=== PATIENT | female | born 1995 | race Caucasian/White ===

== ENCOUNTER 2016-10-05 10:09 | Emergency (ER) | payer BC, MEDICAID ==
[~2016-10-05] VITALS: Ht 152.4 cm; Wt 56.7 kg
[~2016-10-05 10:09] MED LIST: CEFP500T4 PO; FLT05NA16 NSEACH; HYDR1CAP2 PO; IBP600T1 PO; METH4TAB PO
[2016-10-05 10:30] LABS: BASOPHILS # (AUTO) 0.1 10^3/uL (0.0-0.1); BASOPHILS % (AUTO) 1 % (0-10); EOSINOPHILS # (AUTO) 0.1 10^3/uL (0.0-0.3); EOSINOPHILS % (AUTO) 1 % (0-10); LYMPHOCYTES # (AUTO) 1.7 X 10^3 (1.0-4.0); LYMPHOCYTES % (AUTO) 14 % (12-44); MEAN CORPUSCULAR HEMOGLOBIN 29 PG (25-34); MEAN CORPUSCULAR HGB CONC 34 G/DL (32-36); MEAN CORPUSCULAR VOLUME 87 FL (80-99); MEAN PLATELET VOLUME 9.8 FL (7.4-10.4); MONOCYTES # (AUTO) 0.9 X 10^3 (0.0-1.0); MONOCYTES % (AUTO) 8 % (0-12); NEUTROPHILS % (AUTO) 77 % (42-75); PLATELET COUNT 235 10^3/uL (130-400); RED BLOOD COUNT 5.31 10^6/uL (4.35-5.85); WHITE BLOOD COUNT 11.8 10^3/uL (4.3-11.0)
[2016-10-05] MEDS ORDERED: KETOROLAC 30 MG/ML VIAL IVP ONE (10:30)
--- NOTE | 2016-10-05 10:31 | ED Abdominal Pain ---
General Chief Complaint: Abdominal/GI Problems Stated Complaint: R SIDE ABD PAIN Source of Information: Patient Exam Limitations: No Limitations History of Present Illness Time Seen By Provider: 10:28 Initial Comments To ER with right-sided abdominal pain. This been present for 2 days. It initially started as a very mild pain that she ignored. This morning while at work at [employer] pain became much more intense worse with sitting down and radiates to the low back. She denies fevers or chills. She does report nausea but no vomiting. No vaginal discharge. No diarrhea or constipation. She reports that she is sexually active and there is a possibility of . She's never had this pain before. Timing/Duration: 1-2 Days, Getting Worse Severity/Quality: Moderate Location: RLQ Radiation: Back Activities at Onset: None Allergies and Home Medications Allergies Coded Allergies: Penicillins (Unverified Allergy, Intermediate, RASH, 01/26/11) azithromycin (Unverified Allergy, Intermediate, RASH, 01/26/11) Home Medications Cefprozil 500 Mg Tablet, 1 EACH PO BID, #20 Prescribed by: TERRELL EISENBERG on 07/29/1324 Fluticasone Propionate 16 Gm [place], 2 SPRAYS NSEACH DAILY, #1 Prescribed by: TERRELL EISENBERG on 07/29/13 002 Ibuprofen 600 Mg Tablet, 1 EACH PO TID PRN, #20 Prescribed by: ANGIE BALTAZAR on 01/16/13 0936 Methylprednisolone 4 Mg/Dose-Pack Tab.ds.pk, 0 PO UD, #1 Prescribed by: TERRELL EISENBERG on 07/29/1324 Review of Systems Constitutional: see HPI EENTM: No Symptoms Reported Respiratory: No Symptoms Reported Cardiovascular: No Symptoms Reported Gastrointestinal: See HPI, Abdominal Pain, Nausea Genitourinary: No Symptoms Reported Musculoskeletal: no symptoms reported Skin: no symptoms reported Psychiatric/Neurological: No Symptoms Reported Endocrine: No Symptoms Reported Hematologic/Lymphatic: No Symptoms Reported Past Lbhrdnc-Romnwk-Ictccc Hx Patient Social History Alcohol Use: Denies Use Recreational Drug Use: No Smoking Status: Current Someday Smoker Recent Foreign Travel: No Contact w/Someone Who Travel: No Surgeries HX Surgeries: No Respiratory Hx Respiratory Disorders: No Cardiovascular Hx Cardiac Disorders: No Neurological Hx Neurological Disorders: Yes (CONCUSSION 6 MO AGO) Reproductive System Hx Reproductive Disorders: No Genitourinary Hx Genitourinary Disorders: No Gastrointestinal Hx Gastrointestinal Disorders: No Musculoskeletal Hx Musculoskeletal Disorders: No Endocrine Hx Endocrine Disorders: No HEENT HX ENT Disorders: No Cancer Hx Cancer: No Psychosocial Hx Psychiatric Problems: No Integumentary HX Skin/Integumentary Disorder: No Blood Transfusions Hx Blood Disorders: No Family Medical History Significant Family History: No Pertinent Family Hx Physical Exam Vital Signs VS - Last 72 Hours, by Label 10/05/16 10:14 Temp 97.9 Pulse 82 Resp 18 B/P (MAP) 118/70 Pulse Ox 100 O2 Delivery Room Air Capillary Refill : General Appearance: WD/WN, no apparent distress HEENT: PERRL/EOMI, normal ENT inspection Neck: non-tender, full range of motion Respiratory: no respiratory distress, no accessory muscle use Gastrointestinal: normal bowel sounds, soft, No distended, No guarding, tenderness Extremities: normal range of motion, non-tender Neurologic/Psychiatric: alert, normal mood/affect, oriented x 3 Skin: normal color, warm/dry Progress/Results/Core Measures Results/Orders Lab Results Laboratory Tests Test 10/05/16 10:23 10/05/16 10:26 Range/Units Urine Color YELLOW Urine Clarity CLEAR Urine pH 7 5-9 Urine Specific [place] 1.010 L 1.016-1.022 Urine Protein NEGATIVE NEGATIVE Urine Glucose (UA) NEGATIVE NEGATIVE Urine Ketones NEGATIVE NEGATIVE Urine Nitrite NEGATIVE NEGATIVE Urine Bilirubin NEGATIVE NEGATIVE Urine Urobilinogen NORMAL NORMAL MG/DL Urine Leukocyte Esterase 2+ H NEGATIVE Urine RBC (Auto) NEGATIVE NEGATIVE Urine RBC NONE /HPF Urine WBC 5-10 H /HPF Urine Squamous Epithelial Cells 5-10 /HPF Urine Crystals NONE /LPF Urine Bacteria TRACE /HPF Urine Casts NONE /LPF Urine Mucus NEGATIVE /LPF Urine Culture Indicated YES White Blood Count 11.8 H 4.3-11.0 10^3/uL Red Blood Count 5.31 4.35-5.85 10^6/uL Hemoglobin 15.6 11.5-16.0 G/DL Hematocrit 46 35-52 % Mean Corpuscular Volume 87 80-99 FL Mean Corpuscular Hemoglobin 29 25-34 PG Mean Corpuscular Hemoglobin Concent 34 32-36 G/DL Red Cell Distribution Width 13.0 10.0-14.5 % Platelet Count 235 130-400 10^3/uL Mean Platelet Volume 9.8 7.4-10.4 FL Neutrophils (%) (Auto) 77 H 42-75 % Lymphocytes (%) (Auto) 14 12-44 % Monocytes (%) (Auto) 8 0-12 % Eosinophils (%) (Auto) 1 0-10 % Basophils (%) (Auto) 1 0-10 % Neutrophils # (Auto) 9.0 H 1.8-7.8 X 10^3 Lymphocytes # (Auto) 1.7 1.0-4.0 X 10^3 Monocytes # (Auto) 0.9 0.0-1.0 X 10^3 Eosinophils # (Auto) 0.1 0.0-0.3 10^3/uL Basophils # (Auto) 0.1 0.0-0.1 10^3/uL Sodium Level 141 135-145 MMOL/L Potassium Level 3.7 3.6-5.0 MMOL/L Chloride Level 105 98-107 MMOL/L Carbon Dioxide Level 26 21-32 MMOL/L Anion Gap 10 5-14 MMOL/L Blood Urea Nitrogen 11 7-18 MG/DL Creatinine 0.79 0.60-1.30 MG/DL Estimat Glomerular Filtration Rate > 60 BUN/Creatinine Ratio 14 Glucose Level 86 70-105 MG/DL Calcium Level 9.6 8.5-10.1 MG/DL Total Bilirubin 0.6 0.1-1.0 MG/DL Aspartate Amino Transf (AST/SGOT) 17 5-34 U/L Alanine Aminotransferase (ALT/SGPT) 15 0-55 U/L Alkaline Phosphatase 59 40-136 U/L Total Protein 7.8 6.4-8.2 G/DL Albumin 4.8 H 3.2-4.5 G/DL My Orders Orders - CHAN ATKINSON APRN Cbc With Automated Diff (10/05/16 10:18) Comprehensive Metabolic Panel (10/05/16 10:18) Ua Culture If Indicated (10/05/16 10:18) Urine Bedside (10/05/16 10:18) Saline Lock/Iv-Start (10/05/16 10:18) Ct Abd/Pelv W (Appendicitis) (10/05/16 10:28) Ketorolac Injection (Toradol Injection) (10/05/16 10:30) Iohexol Injection (Omnipaque 350 Mg/Ml 1 (10/05/16 10:45) Sodium Chloride Flush (Catheter Flush Sy (10/05/16 10:45) Ns (Ivpb) (Sodium Chloride 0.9% Ivpb Bag (10/05/16 10:45) Urine Culture (10/05/16 10:23) Us Pelvic Non-Ob [id number] (10/05/16 11:19) Medications Given in ED Current Medications Medications Dose Ordered Sig/Joaquín Route Start Time Stop Time Status Last Admin Dose Admin Iohexol 100 ml ONCE ONCE IV 10/05/16 10:45 10/05/16 10:47 DC 10/05/16 10:51 100 ML Ketorolac Tromethamine 30 mg ONCE ONCE IVP 10/05/16 10:30 10/05/16 10:31 DC 10/05/16 10:41 30 MG Sodium Chloride 10 ml NEEDED PRN IV 10/05/16 10:45 10/05/16 10:51 10 ML Sodium Chloride 100 ml ONCE ONCE IV 10/05/16 10:45 10/05/16 10:47 DC 10/05/16 10:51 80 ML Vital Signs/I&O Vital Sign - Last 12Hours 10/05/16 10:14 Temp 97.9 Pulse 82 Resp 18 B/P (MAP) 118/70 Pulse Ox 100 O2 Delivery Room Air Diagnostic Imaging Diagonstic Imaging: Xray Comments NAME: OTTONIEL JUAREZ [facility] REC#: [id number] PT STATUS: REG ER : 1995 PHYSICIAN: CHAN ATKINSON MANAGER OF MAINTENANCE ADMIT DATE: 10/05/16/ER Draft Date of Exam:10/05/16 CT ABD/PELV W (APPENDICITIS) PROCEDURE: CT abdomen and pelvis with contrast, rule out appendicitis. TECHNIQUE: Multiple contiguous axial images were obtained through the abdomen and pelvis after the administration of intravenous contrast. INDICATION: Pelvic pain radiating into the back 3 days history. No priors. FINDINGS: The appendix visualized and unremarkable. There is no hydronephrosis. The liver, gallbladder, bile ducts, spleen, adrenals and pancreas were unremarkable. Aortoiliac and mesenteric vessels patent and nonaneurysmal. There is an IUD device in good position. No acute or suspicious adnexal abnormality. Uterus and urinary bladder are unremarkable. There is mild rectosigmoidal constipation without mitchell impaction or obstruction. Remaining large bowel did not have a pathological fecal load. IMPRESSION: Borderline findings for rectosigmoidal constipation, but no impaction or obstruction. Negative appendix. Unobstructed urinary tracts. No convincing evidence for an acute abnormality. No inflammatory process or obstructive features. Dictated on workstation # [id number] Dict: 10/05/16 1105 Trans: 10/05/16 1117 [id number] Interpreted by: SIVA SMITH Electronically signed by: Departure Communication Progress Notes 1123-pain is completely resolved after 30 mg of IV Toradol. Impression Impression: Primary Impression: Urinary tract infection Additional Impression: Constipation Disposition: HOME, SELF-CARE Condition: Stable Departure-Patient Inst. Decision time for Depature: 11:23 Referrals: NO,LOCAL PHYSICIAN (PCP/Family) Primary Care Physician Patient Instructions: Constipation, Adult (DC), Urinary Tract Infection, Adult (DC) Add. Discharge Instructions: 1. Return to the emergency room for any worsening pain, fevers or other concerns 2. Medication as directed 3. All discharge instructions reviewed with patient and/or family. Voiced understanding. Scripts Polyethylene Glycol 3350 (Miralax) 17 Gm Powd.pack 17 GM PO BID for 3 Days, EACH Prov: CHAN ATKINSON APRN 10/05/16 Sulfamethoxazole/Trimethoprim (Bactrim Ds Tablet) 1 Each Tablet 1 EACH PO BID, #10 TAB Prov: CHAN ATKINSON APRN 10/05/16 CHAN ATKINSON APRN Oct 05, 2016 10:31
[2016-10-05 10:32] LABS: BILIRUBIN,URINE NEGATIVE (NEGATIVE); KETONES,URINE NEGATIVE (NEGATIVE); LEUKOCYTE ESTERASE ,URINE 2+ (NEGATIVE); NITRITE,URINE NEGATIVE (NEGATIVE); PH,URINE 7 (5-9); PROTEIN,URINE NEGATIVE (NEGATIVE); UROBILINOGEN,URINE NORMAL (NORMAL)
[2016-10-05] MEDS ORDERED: IOHEXOL 350 MG/ML 100 ML (OMNIPAQUE 350) VIAL IV ONE (10:45)
[2016-10-05] MEDS ORDERED: NS 100 ML (IVPB) BAG IV ONE (10:45)
[2016-10-05] MEDS ORDERED: CATHETER FLUSH 10 ML SYR IV PRN (10:45)
[2016-10-05 10:53] LABS: ALANINE AMINOTRANSFERASE 15 U/L (0-55); ALBUMIN 4.8 G/DL (3.2-4.5); ANION GAP 10 MMOL/L (5-14); ASPARTATE AMINO TRANSFERASE 17 U/L (5-34); BILIRUBIN,TOTAL 0.6 MG/DL (0.1-1.0); BLOOD UREA NITROGEN 11 MG/DL (7-18); BUN/CREATININE RATIO 14; CALCIUM 9.6 MG/DL (8.5-10.1); CARBON DIOXIDE 26 MMOL/L (21-32); CHLORIDE 105 MMOL/L (98-107); CREATININE SERUM 0.79 MG/DL (0.60-1.30); GFR ESTIMATED > 60; GLUCOSE 86 MG/DL (70-105); POTASSIUM 3.7 MMOL/L (3.6-5.0); SODIUM 141 MMOL/L (135-145); TOTAL PROTEIN 7.8 G/DL (6.4-8.2)
--- NOTE | 2016-10-05 11:18 | Diagnostic Imaging Report ---
PROCEDURE: CT abdomen and pelvis with contrast, rule out appendicitis. TECHNIQUE: Multiple contiguous axial images were obtained through the abdomen and pelvis after the administration of intravenous contrast. INDICATION: Pelvic pain radiating into the back 3 days history. No priors. FINDINGS: The appendix visualized and unremarkable. There is no hydronephrosis. The liver, gallbladder, bile ducts, spleen, adrenals and pancreas were unremarkable. Aortoiliac and mesenteric vessels patent and nonaneurysmal. There is an IUD device in good position. No acute or suspicious adnexal abnormality. Uterus and urinary bladder are unremarkable. There is mild rectosigmoidal constipation without mitchell impaction or obstruction. Remaining large bowel did not have a pathological fecal load. IMPRESSION: Borderline findings for rectosigmoidal constipation, but no impaction or obstruction. Negative appendix. Unobstructed urinary tracts. No convincing evidence for an acute abnormality. No inflammatory process or obstructive features. Dictated by: Dictated on workstation # [id number]
[2016-10-05] MEDS ORDERED: SULF1TAB35 PO (11:25)
[2016-10-05] MEDS ORDERED: POLY17PO6 PO (11:25)
[2016-10-05 11:52] VITALS: BP 117/65
--- NOTE | 2016-10-05 12:07 | Diagnostic Imaging Report ---
Transabdominal and transvaginal pelvic ultrasound. INDICATION: Pelvic pain. The patient has an IUD. FINDINGS: The uterus is 5.2 x 3.6 x 2.8 cm. The IUD is visualized and appears in good position. Slight heterogeneity in the myometrium is seen with no focal mass. The right ovary is 3.3 x 3.0 x 1.9 cm with multiple follicles seen. Arterial waveforms are demonstrated in the right ovary. The left ovary is obscured by bowel gas. IMPRESSION: The uterus and right ovary appear unremarkable. The left ovary is not seen. Dictated by: Dictated on workstation # [id number]
== END 2016-10-05 11:56 | disposition home or self-care (01) ==
LOC: EDUNIT# 10:09 → ER 10:11
DX: N39.0 Urinary tract infection, site not specified (principal); K59.00 Constipation, unspecified; F17.200 Nicotine dependence, unspecified, uncomplicated
CPT/HCPCS: 36415; 74177; 76830; 80053; 81000; 84703; 85025; 87088

== ENCOUNTER 2017-02-02 15:15 | Emergency (ER) | payer BC ==
[~2017-02-02] VITALS: Ht 152.4 cm; Wt 56.7 kg
[~2017-02-02 15:15] MED LIST changes: +POLY17PO6 PO; +SULF1TAB35 PO
--- NOTE | 2017-02-02 15:26 | ED Upper Extremity ---
General Stated Complaint: RIGHT HAND INJ Source: patient Exam Limitations: no limitations History of Present Illness Time seen by provider: 15:25 Initial Comments To ER with pain to the dorsal aspect of the right hand over the third MCP joint after punching a car window this morning. Onset: this morning Severity: moderate Pain/Injury Location: right hand Method of Injury: direct blow Modifying Factors: Worse With Movement Allergies and Home Medications Allergies Coded Allergies: Penicillins (Unverified Allergy, Intermediate, RASH, 01/26/11) azithromycin (Unverified Allergy, Intermediate, RASH, 01/26/11) Home Medications Cefprozil 500 Mg Tablet, 1 EACH PO BID, #20 Prescribed by: TERRELL EISENBERG on 07/29/13 002 Fluticasone Propionate 16 Gm [place], 2 SPRAYS NSEACH DAILY, #1 Prescribed by: TERRELL EISENBERG on 07/29/13 002 Ibuprofen 600 Mg Tablet, 1 EACH PO TID PRN, #20 Prescribed by: ANGIE BALTAZAR on 01/16/13 0936 Methylprednisolone 4 Mg/Dose-Pack Tab.ds.pk, 0 PO UD, #1 Prescribed by: TERRELL EISENBERG on 07/29/1324 Polyethylene Glycol 3350 17 Gm Powd.pack, 17 GM PO BID for 3 Days Prescribed by: CHNA ATKINSON on 10/05/161124 Sulfamethoxazole/Trimethoprim 1 Each Tablet, 1 EACH PO BID, #10 Prescribed by: CHAN ATKINSON on 10/05/165 Constitutional: see HPI EENTM: see HPI Respiratory: no symptoms reported Cardiovascular: no symptoms reported Genitourinary: no symptoms reported Musculoskeletal: see HPI Skin: no symptoms reported Psychiatric/Neurological: No Symptoms Reported Past Bdrvjqg-Fwvcpt-Xmciyp Hx Patient Social History Recent Foreign Travel: No Contact w/Someone Who Travel: No Surgeries History of Surgeries: No Respiratory History of Respiratory Disorde: No Cardiovascular History of Cardiac Disorders: No Neurological History of Neurological Disord: Yes (CONCUSSION 6 MO AGO) Reproductive System Hx Reproductive Disorders: No Gastrointestinal History of Gastrointestinal Di: No Musculoskeletal History of Musculoskeletal Dis: No Endocrine History of Endocrine Disorders: No Cancer History of Cancer: No Psychosocial History of Psychiatric Problem: No Integumentary History of Skin or Integumenta: No Blood Transfusions History of Blood Disorders: No Family Medical History Significant Family History: No Pertinent Family Hx Physical Exam Vital Signs Vital Sign - Last 12Hours 02/02/17 15:20 Temp 98.1 Pulse 70 Resp 18 B/P (MAP) 112/68 Pulse Ox 100 O2 Delivery Room Air Capillary Refill : General Appearance: WD/WN, no apparent distress HEENT: PERRL/EOMI, normal ENT inspection Neck: non-tender, full range of motion Respiratory: no respiratory distress, no accessory muscle use Gastrointestinal: non tender, soft Shoulder: normal inspection, non-tender Wrist: Yes normal inspection, Yes non-tender Hand: normal inspection, non-tender, Right, ecchymosis (over the dorsal aspect of the hand at the middle MCP joint. ), laceration Neurologic/Psychiatric: alert, normal mood/affect, oriented x 3 Skin: normal color, warm/dry Progress/Results/Core Measures Results/Orders My Orders Orders - CHAN ATKINSON APRN Hand, Right, 3 Views (02/02/17 15:24) Vital Signs/I&O Vital Sign - Last 12Hours 02/02/17 15:20 Temp 98.1 Pulse 70 Resp 18 B/P (MAP) 112/68 Pulse Ox 100 O2 Delivery Room Air Departure Impression Impression: Primary Impression: Contusion of hand Disposition: 01 HOME, SELF-CARE Condition: Stable Departure-Patient Inst. Decision time for Depature: 15:48 Referrals: NO,LOCAL PHYSICIAN (PCP/Family) Primary Care Physician Patient Instructions: Contusion (DC) Add. Discharge Instructions: 1. Wear the splint for the next 2-3 days 2. Tylenol Motrin and an ice pack for pain control 3. Work/School Note: Work Release Form Date Seen in the Emergency Department: Feb 02, 2017 Return to Work: Feb 03, 2017 CHAN ATKINSON APRN Feb 02, 2017 15:26
--- NOTE | 2017-02-02 15:54 | Diagnostic Imaging Report ---
INDICATION: Hand injury. FINDINGS: Three views of the right hand show no fracture, dislocation, or other acute abnormalities. IMPRESSION: Negative right hand. Dictated by: Dictated on workstation # [id number]
[2017-02-02 16:10] VITALS: BP 112/68
== END 2017-02-02 16:10 | disposition home or self-care (01) ==
LOC: EDUNIT# 15:15 → ER 15:17
DX: S60.221A Contusion of right hand, initial encounter (principal); W22.09XA Striking against other stationary object, initial encounter
CPT/HCPCS: 73130; 99282

== ENCOUNTER → 2017-09-14 | Outpatient (CLI) | payer BC ==
--- NOTE | 2017-09-14 16:05 | Diagnostic Imaging Report ---
INDICATION: survey. TECHNIQUE: Multiple real-time grayscale images were obtained over the gravid uterus. COMPARISON: None FINDINGS: There is a single live fetus in a cephalic presentation. The placenta is anterior. The amniotic fluid volume is normal. heart rate was recorded 147 beats per minute. Cervical length is 5 cm. kidneys, bladder and stomach are unremarkable. brain is unremarkable. There is a four-chamber heart. There is a three-vessel cord with normal cord insertion. spine is unremarkable. Biometrical measurements are as follows: Biparietal 4.8 cm, age 20 weeks 3 days. Head circumference 17.3 cm, age 16 weeks 3 days. Abdominal circumference 14.4 cm, age 19 weeks 6 days. Femur length 3.2 cm, age 20 weeks 1 days. Sonographic estimate age: 20 weeks 1 days. Sonographic estimated date of delivery: 01/31/18. Estimated Weight: 322 gm (+/- 47 gm). LMP percentile: 21%. heart rate: 147 beats per minute. number: 1 of 1. IMPRESSION: Single live IUP approximately 20 weeks 1 day gestational age. The estimated date of confinement sonographically is 01/31/2018. Dictated by: Dictated on workstation # [id number]
== END ==
LOC: RAD 12:00
PROVIDERS: ATTEND Obstetrics & Gynecology
DX: Z36.89 Encounter for other specified antenatal screening (principal); Z3A.20 20 weeks gestation of pregnancy
CPT/HCPCS: 76805

== ENCOUNTER 2017-10-11 20:21 | Emergency (ER) | payer BC ==
[~2017-10-11] VITALS: Ht 152.4 cm; Wt 63.5 kg
--- OUTSIDE RECORDS SUMMARY | 2017-10-11 20:26 | XMS REPORT ---
Author Author JYOTI GUERRA Organization [facility] Address [address] [place] [address] Care Team Providers Care Banking Supervisor Name Role Phone JYOTI GUERRA Unavailable PROBLEMS Type Condition ICD9-CM Code [id number] Code Onset Dates Condition Status SNOMED Code Problem Dysuria 788.1 Active 71323049 Problem Lumbago 724.2 Active 489580991 Problem Pain in joint, shoulder region 719.41 Active 910185597 Problem GARDASIL (HPV) DX V04.89 Active 944411959 Problem MENINGOCOCCAL DX V03.89 Active 55705039 Problem Posttraumatic stress disorder F43.10 Active 06649516 Problem Cannabis dependence, abuse F12.20 Active 56170371 Problem Urinary tract infection, site not specified 599.0 Active 85861832 Problem Lump or mass in breast 611.72 Active 03069051 Problem Postconcussion syndrome 310.2 Active 77883885 Problem Unspecified otitis media 382.9 Active 89892738 ALLERGIES No Information SOCIAL HISTORY Never Assessed PLAN OF CARE Activity Details Follow Up Next available Reason:PTSD VITAL SIGNS MEDICATIONS No Known Medications RESULTS No Results PROCEDURES Procedure Date Ordered Result Body Site Psychotherapy, patient &/family, 30 minutes, established patient September 27, 2016 IMMUNIZATIONS No Known Immunizations
--- OUTSIDE RECORDS SUMMARY | 2017-10-11 20:26 | XMS REPORT ---
Author Author ADOLFO ROLLINS Organization [facility] Address [address] [place] [address] Care Team Providers Care Executive Casino Host Name Role Phone ADOLFO ROLLINS Unavailable PROBLEMS Type Condition ICD9-CM Code UOR15-NO Code Onset Dates Condition Status SNOMED Code Problem Dysuria 788.1 Active 93712570 Problem Lumbago 724.2 Active 878237028 Problem Pain in joint, shoulder region 719.41 Active 049831598 Problem GARDASIL (HPV) DX V04.89 Active 865320213 Problem MENINGOCOCCAL DX V03.89 Active 12459112 Problem Posttraumatic stress disorder F43.10 Active 98030943 Problem Cannabis dependence, abuse F12.20 Active 10825743 Problem Urinary tract infection, site not specified 599.0 Active 18240615 Problem Lump or mass in breast 611.72 Active 08702260 Problem Postconcussion syndrome 310.2 Active 78807562 Problem Unspecified otitis media 382.9 Active 39617210 ALLERGIES No Information SOCIAL HISTORY Never Assessed PLAN OF CARE Activity Details Follow Up prn; will follow up with recommendations from chief psychologist Reason: VITAL SIGNS MEDICATIONS No Known Medications RESULTS No Results PROCEDURES Procedure Date Ordered Result Body Site Psychotherapy, patient &/family, 30 minutes, established patient September 20, 2016 IMMUNIZATIONS No Known Immunizations
--- OUTSIDE RECORDS SUMMARY | 2017-10-11 20:26 | XMS REPORT ---
Author Author JYOTI GUERRA Organization [facility] Address [address] [place] [address] Care Team Providers Care International Logistics Analyst Name Role Phone JYOTI GUERRA Unavailable PROBLEMS Type Condition ICD9-CM Code [id number] Code Onset Dates Condition Status SNOMED Code Problem Dysuria 788.1 Active 71274390 Problem Lumbago 724.2 Active 386083892 Problem Pain in joint, shoulder region 719.41 Active 757984764 Problem GARDASIL (HPV) DX V04.89 Active 637327140 Problem MENINGOCOCCAL DX V03.89 Active 98430401 Problem Posttraumatic stress disorder F43.10 Active 57618724 Problem Cannabis dependence, abuse F12.20 Active 60750854 Problem Urinary tract infection, site not specified 599.0 Active 00647456 Problem Lump or mass in breast 611.72 Active 99930729 Problem Postconcussion syndrome 310.2 Active 18966048 Problem Unspecified otitis media 382.9 Active 55142641 ALLERGIES No Information SOCIAL HISTORY Never Assessed PLAN OF CARE VITAL SIGNS MEDICATIONS No Known Medications RESULTS No Results PROCEDURES No Known procedures IMMUNIZATIONS No Known Immunizations
--- OUTSIDE RECORDS SUMMARY | 2017-10-11 20:26 | XMS REPORT ---
Author Author ADOLFO ROLLINS Organization [facility] Address [address] [place] [address] Care Team Providers Care Floor Hand Name Role Phone ADOLFO ROLLINS Unavailable PROBLEMS Type Condition ICD9-CM Code [id number] Code Onset Dates Condition Status SNOMED Code Problem Dysuria 788.1 Active 39716046 Problem Lumbago 724.2 Active 162865454 Problem Pain in joint, shoulder region 719.41 Active 945590335 Problem GARDASIL (HPV) DX V04.89 Active 858918918 Problem MENINGOCOCCAL DX V03.89 Active 37985691 Problem Posttraumatic stress disorder F43.10 Active 70595692 Problem Cannabis dependence, abuse F12.20 Active 08415756 Problem Urinary tract infection, site not specified 599.0 Active 43349487 Problem Lump or mass in breast 611.72 Active 43810781 Problem Postconcussion syndrome 310.2 Active 93259807 Problem Unspecified otitis media 382.9 Active 56657979 ALLERGIES No Information SOCIAL HISTORY Never Assessed PLAN OF CARE Activity Details Follow Up 1 Week Reason: VITAL SIGNS MEDICATIONS No Known Medications RESULTS No Results PROCEDURES Procedure Date Ordered Result Body Site Psychotherapy, patient &/family, 30 minutes, established patient September 07, 2016 IMMUNIZATIONS No Known Immunizations
--- OUTSIDE RECORDS SUMMARY | 2017-10-11 20:26 | XMS REPORT ---
Author Author ADOLFO ROLLINS Organization [facility] Address [address] [place] [address] Care Team Providers Care Dental Assistant Medical Assistant Name Role Phone MERONMICHAELADOLFO Unavailable PROBLEMS Type Condition ICD9-CM Code JMW34-SD Code Onset Dates Condition Status SNOMED Code Problem Dysuria 788.1 Active 55838216 Problem Lumbago 724.2 Active 914695632 Problem Pain in joint, shoulder region 719.41 Active 921223636 Problem GARDASIL (HPV) DX V04.89 Active Problem MENINGOCOCCAL DX V03.89 Active Problem Posttraumatic stress disorder F43.10 Active 06897172 Problem Cannabis dependence, abuse F12.20 Active 72468414 Problem Urinary tract infection, site not specified 599.0 Active 61552072 Problem Lump or mass in breast 611.72 Active 72071326 Problem Postconcussion syndrome 310.2 Active 28695945 Problem Unspecified otitis media 382.9 Active 36073640 ALLERGIES No Information SOCIAL HISTORY Never Assessed PLAN OF CARE Activity Details Follow Up 1 Week Reason: VITAL SIGNS MEDICATIONS No Known Medications RESULTS Name Result Date Reference Range URINE DRUG SCREEN (IN HOUSE) 2016-08-31 Lot # [id number] Exp date 03/2018 Control + COCAINE neg AMPH neg MTD neg THC + OPIATE neg BENZO neg PCP neg BAR neg OXY neg MAMP neg TCA n/a BUP neg MDMA neg PROCEDURES Procedure Date Ordered Result Body Site DRUG TEST PRSMV DIR OPT OBS August 31, 2016 Psychotherapy, patient &/family, 30 minutes, new patient August 31, 2016 IMMUNIZATIONS No Known Immunizations
--- NOTE | 2017-10-11 20:53 | ED General ---
General Chief Complaint: Chest Pain Stated Complaint: CHEST PAIN,24 WEEEKS Nursing Triage Note: PT PRESENTS TO ER WITH COMPLAINT OF CHEST PRESSURE AND "HEART RACING". STATES IT WORSENED AFTER EATING. PT IS 24 WEEKS . STATES THE PAIN IS AT THE LOWER PART OF HER STERNUM. Nursing Sepsis Screen: No Definite Risk Source of Information: Patient Exam Limitations: No Limitations History of Present Illness Date Seen by Provider: Oct 11, 2017 Time Seen by Provider: 20:50 Initial Comments The patient is a 22-year-old white female who is 24 weeks . She reported that about 1 hour prior to arrival while putting gas in the car she developed a rather sharp burning pain at the distal sternum and deep. She has been experiencing some heartburn as her has progressed. She ate after the onset and the pain became worse. There was no belching or regurgitation. She has not otherwise been ill Timing/Duration: 1-3 Hours Allergies and Home Medications Allergies Coded Allergies: Penicillins (Unverified Allergy, Intermediate, RASH, 01/26/11) azithromycin (Unverified Allergy, Intermediate, RASH, 01/26/11) Home Medications Cefprozil 500 Mg Tablet, 1 EACH PO BID Prescribed by: TERRELL EISENBERG on 07/29/1324 Fluticasone Propionate 16 Gm Ideal, 2 SPRAYS NSEACH DAILY Prescribed by: TERRELL EISENBERG on 07/29/1324 Ibuprofen 600 Mg Tablet, 1 EACH PO TID PRN Prescribed by: ANGIE BALTAZAR on 01/16/13 0936 Methylprednisolone 4 Mg/Dose-Pack Tab.ds.pk, 0 PO UD Prescribed by: TERRELL EISENBERG on 07/29/1324 Polyethylene Glycol 3350 17 Gm Powd.pack, 17 GM PO BID Prescribed by: CHAN ATKINSON on 10/05/16 112 Sulfamethoxazole/Trimethoprim 1 Each Tablet, 1 EACH PO BID Prescribed by: CHAN ATKINSON on 10/05/16 1125 Patient Home Medication List Home Medication List Reviewed: Yes Review of Systems Constitutional: see HPI EENTM: no symptoms reported Respiratory: no symptoms reported Cardiovascular: chest pain Gastrointestinal: heartburn Genitourinary: no symptoms reported Musculoskeletal: no symptoms reported Skin: no symptoms reported Psychiatric/Neurological: No Symptoms Reported Past Meppjnv-Igakci-Wfejoi Hx Patient Social History Alcohol Use: Denies Use Recreational Drug Use: No Smoking Status: Never a Smoker 2nd Hand Smoke Exposure: No Recent Foreign Travel: No Contact w/Someone Who Travel: No Recent Infectious Disease Expo: No Recent Hopitalizations: No Immunizations Up To Date Tetanus Booster (TDap): Unknown PED Vaccines UTD: Yes Seasonal Allergies Seasonal Allergies: No Past Medical History Surgeries: No Respiratory: No Cardiac: No Neurological: Yes (CONCUSSION 6 MO AGO) Reproductive Disorders: No Gastrointestinal: No Musculoskeletal: No Endocrine: No Cancer: No Psychosocial: No Integumentary: No Blood Disorders: No Family Medical History No Pertinent Family Hx Physical Exam Vital Signs Vital Signs - First Documented 10/11/17 20:28 Pulse 101 Resp 16 B/P (MAP) 138/78 (98) Pulse Ox 97 O2 Delivery Room Air Capillary Refill : Less Than 3 Seconds General Appearance: Mild Distress Eyes: Bilateral Eye Normal Inspection HEENT: Normal ENT Inspection Neck: Full Range of Motion, Normal Inspection, Non Tender, Supple, Carotid Bruit Cardiovascular: Regular Rate, Rhythm, No Edema, No Gallop, No JVD, No Murmur, Normal Peripheral Pulses Gastrointestinal: Normal Bowel Sounds, No Organomegaly, No Pulsatile Mass, Non Tender, Other (palpable dome of the uterus) Back: Normal Inspection Extremity: Normal Inspection Neurologic/Psychiatric: Alert, Oriented x3, No Motor/Sensory Deficits, Normal Mood/Affect Skin: Normal Color Lymphatic: No Adenopathy Progress/Results/Core Measures Suspected Sepsis Recent Fever Within 48 Hours: No Infection Criteria Present: None New/Unexplained Altered Menta: No Sepsis Screen: No Definite Risk SIRS Temperature: Pulse: 101 Respiratory Rate: 16 Blood Pressure 138 /78 Mean: 98 Results/Orders My Orders Orders - DEDRA THAYER MD Antacid Suspension (Mylanta Suspension (10/11/17 21:00) Cbc With Automated Diff (10/11/17 21:35) Comprehensive Metabolic Panel (10/11/17 21:35) Lipase (10/11/17 21:35) Troponin I (10/11/17 21:41) Medications Given in ED Current Medications Medications Dose Ordered Sig/Joaquín Route Start Time Stop Time Status Last Admin Dose Admin Al Hydrox/Mg Hydrox/Simethicone 30 ml ONCE ONCE PO 10/11/17 21:00 10/11/17 21:01 DC 10/11/17 21:07 30 ML Vital Signs/I&O 10/11/17 20:28 Pulse 101 Resp 16 B/P (MAP) 138/78 (98) Pulse Ox 97 O2 Delivery Room Air Capillary Refill : Less Than 3 Seconds Blood Pressure Mean: 98 Departure Communication (Admissions) 4875 the patient had reported the Mylanta was of little or no help. Doppler was employed to get a pedal pulse of 152 which satisfied her concerns Impression Primary Impression: epigastric pain Disposition: HOME, SELF-CARE Condition: Stable/Unchanged Departure-Patient Inst. Decision time for Depature: 22:14 Referrals: NO,LOCAL PHYSICIAN (PCP) Primary Care Physician CARMEN BROWER DO (Family) Primary Care Physician Add. Discharge Instructions: All discharge instructions reviewed with patient and/or family. Voiced understanding. Contact Dr. Brower in the a.m. if discomfort continues DEDRA THAYER MD Oct 11, 2017 20:53
[2017-10-11] MEDS ORDERED: ANTACID SUSP 30 ML UDC (MYLANTA) PO ONE (21:00)
[2017-10-11 22:20] VITALS: BP 138/78
== END 2017-10-11 22:20 | disposition home or self-care (01) ==
LOC: EDUNIT# 20:21 → ER 20:22
DX: O99.89 Other specified diseases and conditions complicating pregnancy, childbirth and the puerperium (principal); R10.13 Epigastric pain; Z87.828 Personal history of other (healed) physical injury and trauma; Z88.0 Allergy status to penicillin; Z88.1 Allergy status to other antibiotic agents; Z3A.24 24 weeks gestation of pregnancy
CPT/HCPCS: 99285

== ENCOUNTER 2018-01-17 14:54 | Outpatient (CLI) | payer BC ==
[~2018-01-17] VITALS: Ht 152.4 cm; Wt 73.5 kg
[2018-01-17] MEDS ORDERED: FLU QUADRIvalent (5+ YOA) 2018-2019 (AFLURIA) 0.5 ML IM ONE (17:45)
--- NOTE | 2018-01-22 09:58 | Physician Query-Final Dx ---
ADAM PANIAGUA 01/22/18 0958: Clinic Account Progress/Dx Physician Query: Please give a diagnosis and the weeks of gestation thank you Date of Service Jan 17, 2018 at 14:54 CARMEN BROWER DO 01/26/18 1728: Clinic Account Progress/Dx DIAGNOSIS: Diagnosis 36 week gestation threatened labor/ contractions ADAM PANIAGUA Jan 22, 2018 09:58 CARMEN BROWER DO Jan 26, 2018 17:28
== END 2018-01-17 17:28 | disposition home or self-care (01) ==
LOC: LDRP 14:54 → WSo 14:54 → LDRP 14:55 → WSo 17:28
PROVIDERS: ATTEND Obstetrics & Gynecology
DX: O47.03 False labor before 37 completed weeks of gestation, third trimester (principal); Z3A.36 36 weeks gestation of pregnancy; Z23 Encounter for immunization
CPT/HCPCS: 99214

== ENCOUNTER 2018-02-01 20:00 | Inpatient (IN) | payer BC ==
[~2018-02-01] VITALS: Ht 152.4 cm; Wt 74.1 kg
[~2018-02-01 20:00] MED LIST changes: +D5 LR IV SOLUTION 1,000 ML IV ONE; +NS (IVPB) 0 ML ONE
[2018-02-01] MEDS ORDERED: VANCOMYCIN INJECTION 1,000 MG in NS (IVPB) 250 ML IV SCH (20:30)
[2018-02-01] MEDS ORDERED: TERBUTALINE INJ 1 MG/ML (BRETHINE) AMP SC PRN (20:30)
[2018-02-01] MEDS ORDERED: MINERAL OIL CONCENTRATE 99.9% 15 ML UDC TOP PRN (20:30)
[2018-02-01] MEDS ORDERED: MISOPROSTOL 100 MCG (CYTOTEC) TAB PO ONE (20:30)
[2018-02-01] MEDS: LACTATED RINGERS 1,000 ML IV SCH (20:40)
[2018-02-01] MEDS ORDERED: NS (IVPB) 250 ML ONE (20:46)
[2018-02-01] MEDS ORDERED: VANCOMYCIN 1000 MG/VIAL ONE (20:52)
[2018-02-01 20:55] LABS: BASOPHILS % (AUTO) 0 % (0-10); EOSINOPHILS # (AUTO) 0.1 10^3/uL (0.0-0.3); EOSINOPHILS % (AUTO) 1 % (0-10); HEMATOCRIT 36 % (35-52); HEMOGLOBIN 12.8 G/DL (11.5-16.0); LYMPHOCYTES # (AUTO) 1.9 X 10^3 (1.0-4.0); LYMPHOCYTES % (AUTO) 21 % (12-44); MEAN CORPUSCULAR HEMOGLOBIN 30 PG (25-34); MEAN CORPUSCULAR HGB CONC 36 G/DL (32-36); MEAN CORPUSCULAR VOLUME 83 FL (80-99); MEAN PLATELET VOLUME 10.5 FL (7.4-10.4); MONOCYTES # (AUTO) 0.8 X 10^3 (0.0-1.0); MONOCYTES % (AUTO) 9 % (0-12); NEUTROPHILS # (AUTO) 6.2 X 10^3 (1.8-7.8); NEUTROPHILS % (AUTO) 69 % (42-75); PLATELET COUNT 227 10^3/uL (130-400); RED BLOOD COUNT 4.34 10^6/uL (4.35-5.85); RED CELL DISTRIBUTION WIDTH 13.8 % (10.0-14.5)
[2018-02-01 21:00] VITALS: BP 125/75
[2018-02-01] MEDS ORDERED: ZOLPIDEM 5 MG (AMBIEN) TAB PO SCH (21:00)
[2018-02-01] MEDS: D5 LR IV SOLUTION 1,000 ML IV SCH (21:07)
[2018-02-01 22:00] VITALS: BP 130/85
[2018-02-01] MEDS ORDERED: diphenhydrAMINE 50 MG/ML INJ (BENADRYL) ONE (22:04)
[2018-02-01] MEDS ORDERED: FAMOTIDINE 20MG/2ML IV (PEPCID) ONE (22:12)
[2018-02-01] MEDS ORDERED: CATHETER FLUSH 10 ML SYR IV PRN (22:45)
[2018-02-01] MEDS ORDERED: diphenhydrAMINE 50 MG/ML INJ (BENADRYL) IM ONE (22:45)
[2018-02-01] MEDS ORDERED: FAMOTIDINE 20MG/2ML IV (PEPCID) IVP ONE (22:45)
[2018-02-01 23:00] VITALS: BP 112/64
[2018-02-01 23:48] LABS: BILIRUBIN,URINE NEGATIVE (NEGATIVE); CLARITY,URINE CLEAR; COLOR,URINE YELLOW; GLUCOSE, URINE (UA) NEGATIVE (NEGATIVE); KETONES,URINE NEGATIVE (NEGATIVE); LEUKOCYTE ESTERASE ,URINE NEGATIVE (NEGATIVE); NITRITE,URINE NEGATIVE (NEGATIVE); PH,URINE 6 (5-9); PROTEIN,URINE NEGATIVE (NEGATIVE); UROBILINOGEN,URINE NORMAL (NORMAL)
[2018-02-01 23:58] LABS: BACTERIA,URINE TRACE /HPF; SQUAMOUS EPITHELIAL CELL,UR 0-2 /HPF; WBC,URINE 0-2 /HPF
[2018-02-02] VITALS (70 sets, daily range): BP systolic 90–194; BP diastolic 54–121
[2018-02-02] MEDS: LACTATED RINGERS 1,000 ML IV SCH (00:32)
[2018-02-02] MEDS: MISOPROSTOL 100 MCG (CYTOTEC) TAB PO SCH ×2 (01:13→05:08)
[2018-02-02] MEDS ORDERED: morphine INJ 10 MG/ML 1ML (SYR OR VIAL) ONE (01:17)
[2018-02-02] MEDS: morphine INJ 4 MG/ML 1 ML (VIAL/SYRINGE) IVP PRN ×3 (01:27→09:14)
[2018-02-02] MEDS: ceFAZolin INJECTION 1,000 MG in NS (IVPB) 50 ML IV SCH ×3 (05:08→21:17)
[2018-02-02] MEDS: D5 LR IV SOLUTION 1,000 ML IV SCH ×2 (05:10→13:00)
[2018-02-02] MEDS ORDERED: FLU QUADRIvalent (5+ YOA) 2018-2019 (AFLURIA) 0.5 ML IM ONE (07:30)
[2018-02-02] MEDS: EPIDURAL (SUFENTA 0.6MCG/ML BUPIVA 0.125%) 100 ML BAG EPI PRN ×2 (09:00→19:18)
[2018-02-02] MEDS ORDERED: ONDANSETRON 4 MG/2 ML (SDV) Z0FRAN IVP ONE (09:45)
[2018-02-02] MEDS ORDERED: fentaNYL INJECTION 100 MCG/2 ML AMP ONE (10:22)
[2018-02-02] MEDS ORDERED: SUFENTA 0.6MCG/ML BUPIVA 0.125 100 ML ONE (10:22)
[2018-02-02] MEDS ORDERED: 0.9% SODIUM CHLORIDE PF INJ 20 ML VIAL ONE (10:22)
[2018-02-02] MEDS ORDERED: BUPIVACAINE 0.5% 30 ML (SENSORCAINE) VIAL ONE (10:22)
[2018-02-02] MEDS ORDERED: LIDOCAINE PF 2% 5 ML (XYLOCAINE) VIAL ONE (10:22)
[2018-02-02] MEDS ORDERED: LACTATED RINGERS 1,000 ML IV SCH (11:04)
[2018-02-02] MEDS ORDERED: ONDANSETRON 4 MG/2 ML (SDV) Z0FRAN IV PRN (11:15)
[2018-02-02] MEDS ORDERED: diphenhydrAMINE 50 MG/ML INJ (BENADRYL) IV PRN (11:15)
[2018-02-02] MEDS ORDERED: NALOXONE 0.4 MG/ML 1 ML (NARCAN) VIAL IV PRN (11:15)
[2018-02-02] MEDS ORDERED: OXYTOCIN/NORMAL SALINE 500 ML IV ONE (16:36)
[2018-02-02] MEDS ORDERED: OXYTOCIN/NORMAL SALINE 500 ML IV SCH ×2 (16:38→23:20)
[2018-02-02] MEDS ORDERED: LIDOCAINE/EPI 2% 1:200,00 (XYLOCAINE) 10 ML VIAL ONE (21:17)
--- NOTE | 2018-02-02 23:26 | OB Labor & Delivery Record ---
Vag Delivery Note Vag Delivery Note Date of Delivery: 02/02/18 Preoperative Diagnosis: Noelle Ray is a (22 /Para 1/0 , Gestational Age 40 4/7 weeks Postoperative Diagnosis: Same, thick meconium Surgeon: CARMEN BROWER Anesthesia: epidural Delivery Type: vaginal assisted Findings: [] Viable male infant, apgars [], weight [] Lacerations: vaginal superficial left sulcus and right labial minora superficial tear. No sutures Intact placenta with 3 vessel cord. No nuchal cord, body cord or shoulder dystocia Estimated Blood Loss: 200 ml Complications: None Condition: Stable Description of Procedure: The patient is a 22 /Para 1/0 ,Gestational Age 40 4/7 weeks who presented [] for induction of labor. She was admitted and informed consent was obtained. Her labor course was remarkable for misoprostol x 3 doses and then SROM. Pitocin augmentation She progressed to complete dilatation and began to push. She was then set up for delivery. The 's head was delivered atraumatically in the MEÑO position. The shoulders and remainder of the infant' s body were then delivered without difficulty. Upon delivery, the head was held below the level of the perineum and the mouth and nares were bulb suctioned. The cord was doubly clamped and cut and the was handed off to the pediatric staff. An intact placenta with 3-vessel cord delivered via [place] and there was found to be minimal bleeding.~ Vigorous fundal massage was performed and the fundus was found to be firm. IV oxytocin was given. Examination of the vagina and perineum revealed vaginal superficial left sulcus and right labial minora superficial tear that did not require repair. Following the delivery, sponge, instrument and needle counts were correct. Mom and baby were both in stable condition in the labor suite. Vitals - Labs Vital Signs - I&O Vital Signs Date Time Temp Pulse Resp B/P (MAP) Pulse Ox O2 Delivery O2 Flow Rate FiO2 02/02/18 20:00 72 18 112/58 (76) 100 Non Rebreather 15.00 02/02/18 19:45 80 18 103/58 (73) 97 Room Air 02/02/18 19:30 75 18 106/55 (72) 97 Room Air 02/02/18 19:15 97.8 75 18 108/62 (77) 97 Room Air 02/02/18 19:00 80 111/56 (74) Room Air 02/02/18 18:45 75 110/69 (83) Room Air 02/02/18 18:30 71 18 107/59 (75) 99 Room Air 02/02/18 18:15 81 18 115/64 (81) 98 Room Air 02/02/18 18:00 82 18 113/67 (82) 99 Room Air 02/02/18 17:45 97.6 95 18 122/75 (91) 99 Room Air 02/02/18 17:30 90 18 109/70 (83) 99 Room Air 02/02/18 17:15 81 18 110/70 (83) 98 Room Air 02/02/18 17:00 89 18 113/68 (83) 98 Room Air 02/02/18 16:45 86 18 114/64 (81) 96 Room Air 02/02/18 16:30 88 18 97 Room Air 02/02/18 16:15 76 18 103/64 (77) 96 Room Air 02/02/18 16:00 67 18 103/59 (74) 96 Room Air 02/02/18 15:45 67 18 102/60 (74) Room Air 02/02/18 15:30 96.7 Room Air 02/02/18 15:15 67 18 101/58 (72) 96 Room Air 02/02/18 15:00 69 18 99/54 (69) 96 Room Air 02/02/18 14:45 62 18 101/58 (72) 96 Room Air 02/02/18 14:45 67 16 101/58 (72) 97 Room Air 02/02/18 14:30 77 18 112/66 (81) 97 Room Air 02/02/18 14:15 76 18 111/63 (79) 96 Room Air 02/02/18 14:00 81 18 110/73 (85) 96 Room Air 02/02/18 13:45 72 18 105/60 (75) 97 Room Air 02/02/18 13:30 91 18 119/68 (85) 97 Room Air 02/02/18 13:15 82 18 109/63 (78) 97 Room Air 02/02/18 12:45 80 20 107/65 (79) 97 Room Air 02/02/18 12:30 79 20 102/66 (78) 95 Room Air 10/5/18 12:15 72 20 101/58 (72) 96 Room Air 02/02/18 12:00 68 20 100/54 (69) 97 Room Air 02/02/18 11:45 73 20 101/57 (72) 97 Room Air 02/02/18 11:36 73 20 101/57 (72) 97 Room Air 02/02/18 11:32 70 20 103/60 (74) 97 Room Air 02/02/18 11:28 75 20 107/61 (76) 98 Room Air 02/02/18 11:20 87 20 112/62 (79) 99 Room Air 02/02/18 11:15 84 20 120/77 (91) 99 Room Air 02/02/18 11:12 84 20 120/77 (91) 99 Room Air 02/02/18 11:07 80 20 110/68 (82) 99 Room Air 02/02/18 11:00 95 20 115/64 (81) 99 Room Air 02/02/18 10:57 100 20 118/67 (84) 99 Room Air 02/02/18 10:52 104 20 129/73 (91) 98 Room Air 02/02/18 10:48 98 20 123/74 (90) 100 Room Air 02/02/18 10:45 107 20 127/78 (94) 100 Room Air 02/02/18 10:40 110 20 124/74 (91) 100 Room Air 02/02/18 10:30 103 20 122/65 (84) 100 Room Air 02/02/18 10:00 90 20 144/65 (91) 100 Room Air 02/02/18 09:35 87 20 121/80 (94) 100 Room Air 02/02/18 09:00 97 20 122/71 (88) 100 Room Air 02/02/18 07:35 67 20 108/64 (79) Room Air 02/02/18 07:00 69 20 108/57 (74) Room Air 02/02/18 06:00 82 20 108/60 (76) Room Air 02/02/18 05:00 98.4 67 20 101/54 (70) Room Air 02/02/18 04:00 76 20 98/57 (71) Room Air 02/02/18 03:00 76 20 98/57 (71) Room Air 02/02/18 02:00 79 20 90/55 (67) Room Air 02/02/18 01:00 85 20 100/55 (70) Room Air 02/02/18 00:00 76 20 110/63 (79) Room Air Labs Microbiology 02/01/18 Urine Culture - Final, Complete NO GROWTH CARMEN BROWER DO Feb 02, 2018 23:26
[2018-02-02] MEDS ORDERED: HYDROcodone/APAP 5 MG/325 MG (LORTAB) TAB PO PRN (23:30)
[2018-02-02] MEDS ORDERED: TETANUS,DIPTH,PERTUSS P/F (BOOSTRIX) 0.5 ML VIAL IM ONE (23:30)
[2018-02-02] MEDS ORDERED: DIBUCAINE (NUPERCAINAL) 1% OINT 30 GM TOP PRN (23:30)
[2018-02-02] MEDS ORDERED: WITCH HAZEL(TUCKS) 40 EA JAR TOP PRN (23:30)
[2018-02-02] MEDS ORDERED: BENZOCAINE/MENTHOL (DERMOPLAST) 56 ML CAN TP PRN (23:30)
[2018-02-02] MEDS ORDERED: MEASLES,MUMPS,RUBELLA 1 EA INJ SQ ONE (23:30)
[2018-02-03] VITALS (10 sets, daily range): BP systolic 101–124; BP diastolic 58–80
[2018-02-03] MEDS: IBUPROFEN 600 MG (MOTRIN) TAB PO SCH ×4 (03:02→21:05)
[2018-02-03] MEDS ORDERED: CATHETER FLUSH 10 ML SYR IV SCH (06:00)
[2018-02-03 06:21] LABS: BASOPHILS % (AUTO) 0 % (0-10); EOSINOPHILS # (AUTO) 0.1 10^3/uL (0.0-0.3); EOSINOPHILS % (AUTO) 0 % (0-10); HEMATOCRIT 34 % (35-52); HEMOGLOBIN 11.8 G/DL (11.5-16.0); LYMPHOCYTES # (AUTO) 1.5 X 10^3 (1.0-4.0); LYMPHOCYTES % (AUTO) 8 % (12-44); MEAN CORPUSCULAR HEMOGLOBIN 30 PG (25-34); MEAN CORPUSCULAR HGB CONC 35 G/DL (32-36); MEAN CORPUSCULAR VOLUME 84 FL (80-99); MEAN PLATELET VOLUME 10.7 FL (7.4-10.4); MONOCYTES # (AUTO) 1.3 X 10^3 (0.0-1.0); MONOCYTES % (AUTO) 7 % (0-12); NEUTROPHILS # (AUTO) 14.8 X 10^3 (1.8-7.8); NEUTROPHILS % (AUTO) 84 % (42-75); PLATELET COUNT 194 10^3/uL (130-400); RED BLOOD COUNT 3.99 10^6/uL (4.35-5.85); WHITE BLOOD COUNT 17.6 10^3/uL (4.3-11.0)
[2018-02-03 07:22] LABS: EOSINOPHILS % (MANUAL) 1 %; LYMPHOCYTES % (MANUAL) 4 %; MONOCYTES % (MANUAL) 3 %; NEUTROPHILS % (MANUAL) 92 %; RBC MORPH NORMAL
--- NOTE | 2018-02-03 09:06 | Anesthesia-Regional Post-Op ---
Regional Patient Condition Mental Status: Alert, Oriented x3 Circulation: Same as Pre-Op Headache: Absent Sensation: Full Recovery Motor Block: Absent Post Op Complications Complications None Follow Up Care/Instructions Patient Instructions None needed. Anesthesia/Patient Condition Patient is doing well, no complaints, stable vital signs, no apparent adverse anesthesia problems. No complications reported per nursing. JAE MANCINI CRNA Feb 03, 2018 09:06
[2018-02-03] MEDS: FERROUS SULF 325 MG (IRON) TAB PO SCH (09:30)
[2018-02-03] MEDS: DOCUSATE SODIUM 100 MG (COLACE) CAP PO SCH ×2 (09:30→21:05)
[2018-02-03] MEDS: PRENATAL VITAMIN 1 EA TAB PO SCH (09:30)
[2018-02-03] MEDS ORDERED: FLU QUADRIvalent (5+ YOA) 2018-2019 (AFLURIA) 0.5 ML IM ONE (09:41)
--- NOTE | 2018-02-03 10:32 | Postpartum Progress Note ---
Note Note Day # 1 s/p Patient was GBS + and history of PCN allergy. Had a reaction during the instillation of the Vancomycin, but it is suspected to be "red man" rather than an allergy. However, changed to Ancef and received several doses prior to delivery. Subjective: Patient is without complaints. Ambulating, voiding. Tolerating a regular diet without nausea or vomiting. Normal lochia. Pain is well controlled with oral pain medications. breast feeding. Objective: Laboratory Tests Test 02/03/18 06:02 Range/Units White Blood Count 17.6 H 4.3-11.0 10^3/uL Red Blood Count 3.99 L 4.35-5.85 10^6/uL Hemoglobin 11.8 11.5-16.0 G/DL Hematocrit 34 L 35-52 % Mean Corpuscular Volume 84 80-99 FL Mean Corpuscular Hemoglobin 30 25-34 PG Mean Corpuscular Hemoglobin Concent 35 32-36 G/DL Red Cell Distribution Width 14.0 10.0-14.5 % Platelet Count 194 130-400 10^3/uL Mean Platelet Volume 10.7 H 7.4-10.4 FL Neutrophils (%) (Auto) 84 H 42-75 % Lymphocytes (%) (Auto) 8 L 12-44 % Monocytes (%) (Auto) 7 0-12 % Eosinophils (%) (Auto) 0 0-10 % Basophils (%) (Auto) 0 0-10 % Neutrophils # (Auto) 14.8 H 1.8-7.8 X 10^3 Lymphocytes # (Auto) 1.5 1.0-4.0 X 10^3 Monocytes # (Auto) 1.3 H 0.0-1.0 X 10^3 Eosinophils # (Auto) 0.1 0.0-0.3 10^3/uL Basophils # (Auto) 0.0 0.0-0.1 10^3/uL Neutrophils % (Manual) 92 % Lymphocytes % (Manual) 4 % Monocytes % (Manual) 3 % Eosinophils % (Manual) 1 % Blood Morphology Comment NORMAL 02/02/18 02/02/18 02/02/18 02/02/18 22:45 23:00 23:06 23:30 Temp 97.9 Pulse 76 83 Resp 18 18 18 18 B/P (MAP) 124/59 (80) 121/71 (88) O2 Delivery Non Rebreather Non Rebreather Non Rebreather Room Air O2 Flow Rate 15.00 15.00 15.00 02/02/18 02/03/18 02/03/18 02/03/18 23:45 00:00 00:15 00:30 Temp 98.6 98.8 98.7 98.8 Pulse 74 88 68 90 Resp 18 18 18 18 B/P (MAP) 124/69 (87) 124/70 (88) 124/70 (88) 120/60 (80) O2 Delivery Room Air Room Air Room Air Room Air 02/03/18 02/03/18 02/03/18 02/03/18 01:00 01:15 03:02 08:00 Temp 98.2 97.8 Pulse 71 85 91 70 Resp 18 18 18 18 B/P (MAP) 118/58 (78) 122/61 (81) 111/60 (77) 101/67 (78) Pulse Ox 96 97 O2 Delivery Room Air Room Air Room Air Room Air 02/03/18 00:00 Intake Total 1000 ml Balance 1000 ml Physical Exam: General - Alert and oriented, no apparent distress Abdomen - Soft, appropriately tender to palpation, non-distended, fundus firm at umbilicus Extremities - no edema, negative Marco's bilaterally Assessment: 1. post- day # 1, status post vacuum assisted vaginal delivery. Recovering well, hemodynamically stable Plan: Routine care. Encourage breast feeding. Encourage ambulation. Plan for discharge tomorrow Vitals - Labs Vital Signs - I&O Vital Signs Date Time Temp Pulse Resp B/P (MAP) Pulse Ox O2 Delivery O2 Flow Rate FiO2 02/03/18 08:00 97.8 70 18 101/67 (78) 97 Room Air 02/03/18 03:02 98.2 91 18 111/60 (77) 96 Room Air 02/03/18 01:15 85 18 122/61 (81) Room Air 02/03/18 01:00 71 18 118/58 (78) Room Air 02/03/18 00:30 98.8 90 18 120/60 (80) Room Air 02/03/18 00:15 98.7 68 18 124/70 (88) Room Air 02/03/18 00:00 98.8 88 18 124/70 (88) Room Air 02/02/18 23:45 98.6 74 18 124/69 (87) Room Air 02/02/18 23:30 97.9 83 18 121/71 (88) Room Air 02/02/18 23:06 18 Non Rebreather 15.00 02/02/18 23:00 18 Non Rebreather 15.00 02/02/18 22:45 76 18 124/59 (80) Non Rebreather 15.00 02/02/18 22:30 82 18 122/61 (81) Non Rebreather 15.00 02/02/18 22:15 83 18 118/55 (76) 100 Non Rebreather 15.00 02/02/18 22:00 72 18 134/60 (84) 100 Room Air 02/02/18 21:45 72 18 108/57 (74) 100 Room Air 02/02/18 21:30 82 18 194/121 (145) 100 Non Rebreather 15.00 02/02/18 21:15 94 18 115/69 (84) 100 Non Rebreather 15.00 02/02/18 21:00 90 18 125/65 (85) 100 Non Rebreather 15.00 02/02/18 20:45 86 18 113/71 (85) 91 Non Rebreather 15.00 02/02/18 20:30 77 18 114/73 (87) 100 Non Rebreather 15.00 02/02/18 20:15 70 18 111/60 (77) 100 Non Rebreather 15.00 02/02/18 20:00 72 18 112/58 (76) 100 Non Rebreather 15.00 02/02/18 19:45 80 18 103/58 (73) 97 Room Air 02/02/18 19:30 75 18 106/55 (72) 97 Room Air 02/02/18 19:15 97.8 75 18 108/62 (77) 97 Room Air 02/02/18 19:00 80 111/56 (74) Room Air 02/02/18 18:45 75 110/69 (83) Room Air 02/02/18 18:30 71 18 107/59 (75) 99 Room Air 02/02/18 18:15 81 18 115/64 (81) 98 Room Air 02/02/18 18:00 82 18 113/67 (82) 99 Room Air 02/02/18 17:45 97.6 95 18 122/75 (91) 99 Room Air 02/02/18 17:30 90 18 109/70 (83) 99 Room Air 02/02/18 17:15 81 18 110/70 (83) 98 Room Air 02/02/18 17:00 89 18 113/68 (83) 98 Room Air 02/02/18 16:45 86 18 114/64 (81) 96 Room Air 02/02/18 16:30 88 18 97 Room Air 02/02/18 16:15 76 18 103/64 (77) 96 Room Air 02/02/18 16:00 67 18 103/59 (74) 96 Room Air 02/02/18 15:45 67 18 102/60 (74) Room Air 02/02/18 15:30 96.7 Room Air 02/02/18 15:15 67 18 101/58 (72) 96 Room Air 02/02/18 15:00 69 18 99/54 (69) 96 Room Air 02/02/18 14:45 62 18 101/58 (72) 96 Room Air 02/02/18 14:45 67 16 101/58 (72) 97 Room Air 02/02/18 14:30 77 18 112/66 (81) 97 Room Air 02/02/18 14:15 76 18 111/63 (79) 96 Room Air 02/02/18 14:00 81 18 110/73 (85) 96 Room Air 02/02/18 13:45 72 18 105/60 (75) 97 Room Air 02/02/18 13:30 91 18 119/68 (85) 97 Room Air 02/02/18 13:15 82 18 109/63 (78) 97 Room Air 02/02/18 12:45 80 20 107/65 (79) 97 Room Air 02/02/18 12:30 79 20 102/66 (78) 95 Room Air 02/02/18 12:15 72 20 101/58 (72) 96 Room Air 02/02/18 12:00 68 20 100/54 (69) 97 Room Air 02/02/18 11:45 73 20 101/57 (72) 97 Room Air 02/02/18 11:36 73 20 101/57 (72) 97 Room Air 02/02/18 11:32 70 20 103/60 (74) 97 Room Air 02/02/18 11:28 75 20 107/61 (76) 98 Room Air 02/02/18 11:20 87 20 112/62 (79) 99 Room Air 02/02/18 11:15 84 20 120/77 (91) 99 Room Air 02/02/18 11:12 84 20 120/77 (91) 99 Room Air 02/02/18 11:07 80 20 110/68 (82) 99 Room Air 02/02/18 11:00 95 20 115/64 (81) 99 Room Air 02/02/18 10:57 100 20 118/67 (84) 99 Room Air 02/02/18 10:52 104 20 129/73 (91) 98 Room Air 02/02/18 10:48 98 20 123/74 (90) 100 Room Air 02/02/18 10:45 107 20 127/78 (94) 100 Room Air 02/02/18 10:40 110 20 124/74 (91) 100 Room Air 02/02/18 10:30 103 20 122/65 (84) 100 Room Air I & O 02/03/18 07:00 Intake Total 1000 ml Balance 1000 ml Labs Laboratory Tests 02/03/18 06:02: White Blood Count 17.6H, Red Blood Count 3.99L, Hemoglobin 11.8, Hematocrit 34L , Mean Corpuscular Volume 84, Mean Corpuscular Hemoglobin 30, Mean Corpuscular Hemoglobin Concent 35, Red Cell Distribution Width 14.0, Platelet Count 194, Mean Platelet Volume 10.7H, Neutrophils (%) (Auto) 84H, Lymphocytes (%) (Auto) 8L, Monocytes (%) (Auto) 7, Eosinophils (%) (Auto) 0, Basophils (%) (Auto) 0, Neutrophils # (Auto) 14.8H, Lymphocytes # (Auto) 1.5, Monocytes # (Auto) 1.3H, Eosinophils # (Auto) 0.1, Basophils # (Auto) 0.0, Neutrophils % (Manual) 92, Lymphocytes % (Manual) 4, Monocytes % (Manual) 3, Eosinophils % (Manual) 1, Blood Morphology Comment NORMAL Microbiology 02/01/18 Urine Culture - Final, Complete NO GROWTH CARMEN BROWER DO Feb 03, 2018 10:32
[2018-02-04 02:00] VITALS: BP 103/69
[2018-02-04] MEDS: IBUPROFEN 600 MG (MOTRIN) TAB PO SCH ×3 (03:18→14:42)
[2018-02-04 08:00] VITALS: BP 100/71
[2018-02-04] MEDS: PRENATAL VITAMIN 1 EA TAB PO SCH (09:05)
[2018-02-04] MEDS: DOCUSATE SODIUM 100 MG (COLACE) CAP PO SCH (09:05)
[2018-02-04] MEDS: FERROUS SULF 325 MG (IRON) TAB PO SCH (09:05)
--- NOTE | 2018-02-04 11:38 | Discharge Inst-Women's Service ---
Discharge Inst-Women's Serv Depart Medication/Instructions New, Converted or Re-Newed RX: RX on Chart Final Diagnosis post maturity > 40 weeks vaginal delivery epidural Consults/Follow Up Additional Follow Up: Yes (1-2 weeks with Nabil and then 6 weeks for post exam ) Activity Activity: Activity as Tolerated Driving Instructions: You May Drive NO SMOKING: NO SMOKING Nothing Inside Vagina: No Douching, No [place], No Tampons Diet Discharge Diet: No Restrictions Symptoms to Report to : Bleeding Excessive, Pain Increased, Fever Over 101 Degrees F, Vaginal Bleeding Increase, Cramps in Feet or Legs, Vaginal Discharge Foul For Any Problems or Questions: Contact Your Physician CARMEN BROWER DO Feb 04, 2018 11:38
[2018-02-04] MEDS ORDERED: ACET-2267 PO (11:40)
[2018-02-04] MEDS ORDERED: IBUP-844 PO (11:40)
[2018-02-04] MEDS ORDERED: ACETAMINOPHEN 500 MG TAB (TYLENOL) PO PRN (11:45)
[2018-02-04 12:45] VITALS: BP 110/60
[2018-02-04 15:00] VITALS: BP 110/60
== END 2018-02-04 15:00 | disposition home or self-care (01) | DRG 807 ==
LOC: LDRP 20:03
PROVIDERS: ADMIT Obstetrics & Gynecology; ATTEND Obstetrics & Gynecology
PROC: 3E0DXGC Introduction of Other Therapeutic Substance into Mouth and Pharynx, External Approach (ICD-10-PCS; 2018-02-01)
PROC: 10E0XZZ Delivery of Products of Conception, External Approach (ICD-10-PCS; principal; 2018-02-02)
DX: O48.0 Post-term pregnancy (principal); O99.824 Streptococcus B carrier state complicating childbirth; O70.1 Second degree perineal laceration during delivery; Z3A.40 40 weeks gestation of pregnancy; Z37.0 Single live birth; Z23 Encounter for immunization
CPT/HCPCS: 36415; 81000; 85007; 85025; 85027; 86850; 86900; 86901; 87088; 88307; 90686

== ENCOUNTER 2021-07-10 13:14 | Outpatient (CLI) | payer MEDICAID ==
[~2021-07-10] VITALS: Ht 152.4 cm; Wt 60.7 kg
[~2021-07-10 13:14] MED LIST changes: +ACET-2267 PO; -D5 LR IV SOLUTION 1,000 ML IV ONE; +IBUP-844 PO; -NS (IVPB) 0 ML ONE; -SULF1TAB35 PO; +SULF1TAB38 PO
[2021-07-10 13:43] VITALS: BP 120/59
[2021-07-10] MEDS ORDERED: PREN-37 PO (13:47)
[2021-07-10 13:57] LABS: CLARITY,URINE CLOUDY; COLOR,URINE YELLOW; GLUCOSE, URINE (UA) NEGATIVE (NEGATIVE); KETONES,URINE 2+ (NEGATIVE); LEUKOCYTE ESTERASE ,URINE TRACE (NEGATIVE); NITRITE,URINE NEGATIVE (NEGATIVE); PROTEIN,URINE TRACE (NEGATIVE)
[2021-07-10 14:21] LABS: BACTERIA,URINE NEGATIVE /HPF; BILIRUBIN,URINE 2+ (NEGATIVE); RBC,URINE RARE /HPF
[2021-07-10] MEDS ORDERED: ONDA4TAB11 SL (16:09)
[2021-07-10] MEDS ORDERED: FAMO-119 PO (16:09)
== END 2021-07-10 14:05 | disposition home or self-care (01) ==
LOC: WSo 13:14 → LDRP 13:14 → WSo 14:05
PROVIDERS: ATTEND Obstetrics & Gynecology
DX: Z34.90 Encounter for supervision of normal pregnancy, unspecified, unspecified trimester (principal); Z3A.00 Weeks of gestation of pregnancy not specified
CPT/HCPCS: 81000; 99212

== ENCOUNTER 2021-07-10 14:04 | Emergency (ER) | payer MEDICAID ==
[~2021-07-10] VITALS: Ht 162 cm; Wt 63.0 kg
[~2021-07-10 14:04] MED LIST changes: +PREN-37 PO
[2021-07-10 14:36] LABS: BASOPHILS % (AUTO) 0 % (0-10); EOSINOPHILS % (AUTO) 0 % (0-10); HEMATOCRIT 39 % (35-52); HEMOGLOBIN 13.5 g/dL (11.5-16.0); LYMPHOCYTES % (AUTO) 20 % (12-44); MEAN CORPUSCULAR HEMOGLOBIN 30 pg (25-34); MEAN CORPUSCULAR HGB CONC 35 g/dL (32-36); MEAN CORPUSCULAR VOLUME 87 fL (80-99); MEAN PLATELET VOLUME 9.8 fL (9.0-12.2); MONOCYTES # (AUTO) 0.4 10^3/uL (0.0-1.0); MONOCYTES % (AUTO) 8 % (0-12); NEUTROPHILS # (AUTO) 3.8 10^3/uL (1.8-7.8); NEUTROPHILS % (AUTO) 71 % (42-75); PLATELET COUNT 210 10^3/uL (130-400); WHITE BLOOD COUNT 5.3 10^3/uL (4.3-11.0)
[2021-07-10] MEDS ORDERED: FAMOTIDINE 20MG/2ML IV (PEPCID) IVP ONE (14:45)
[2021-07-10] MEDS ORDERED: LACTATED RINGERS 1,000 ML IV ONE (14:45)
[2021-07-10 14:46] LABS: ALBUMIN 3.9 GM/DL (3.2-4.5)
[2021-07-10 14:47] LABS: POTASSIUM 3.9 MMOL/L (3.6-5.0)
[2021-07-10 14:49] LABS: PROTHROMBIN TIME PATIENT 13.2 SEC (12.2-14.7); TOTAL PROTEIN 7.1 GM/DL (6.4-8.2)
[2021-07-10 14:51] LABS: BILIRUBIN,TOTAL 0.4 MG/DL (0.1-1.0)
[2021-07-10 14:53] LABS: CREATININE SERUM 0.65 MG/DL (0.60-1.30)
--- NOTE | 2021-07-10 14:53 | ED General ---
General Chief Complaint: General Problems/Pain Stated Complaint: SOB,DIZZINESS Nursing Triage Note: PT TO ED AFTER BEING EVALUATED ON WOMEN'S SERVICES FOR CHEST PRESSURE, SOB, DIZZINESS. PT REPORTS DID HAVE N/V YESTERDAY ET DENIES SYMPTOMS TODAY. NO OTHER C/O VOICED. PT DOES REPORT FHT'S ON WOMEN'S SERVICES WERE 140'S. Source of Information: Patient Exam Limitations: No Limitations History of Present Illness Date Seen by Provider: Jul 10, 2021 Time Seen by Provider: 14:11 Initial Comments This 25-year-old young lady is about 25 weeks gestational age and presents with complaints of shortness of breath, chest pressure, lightheadedness, nausea, and vomiting. She had significant nausea and vomiting yesterday but states the nausea has now resolved. She had a subjective low-grade fever yesterday but is afebrile today. She describes her chest discomfort as a pressure sitting in the lower substernal region and extending into the epigastrium. She is nontender over the chest or epigastrium. She denies cough. She denies smoking. She has no pain or swelling in her calves. She was assessed in labor and delivery and cleared from an obstetrics perspective. She denies any prior similar episodes with her other pregnancies. She is feeling good movement today. She denies diarrhea. Labor and delivery noted a heart rate up to 140 during their assessment. Allergies and Home Medications Allergies Coded Allergies: Penicillins (Unverified Allergy, Intermediate, RASH, 01/26/11) azithromycin (Unverified Allergy, Intermediate, RASH, 01/26/11) Patient Home Medication List Home Medication List Reviewed: Yes Famotidine (Pepcid) 20 Mg Tablet, 20 MG PO BID Prescribed by: ANGIE BALTAZAR on 07/10/21 1609 Ondansetron (Ondansetron Odt) 4 Mg Tab.rapdis, 4 MG SL Q4H PRN for NAUSEA/VOMITING Prescribed by: ANGIE BALTAZAR on 07/10/21 1609 Vit/Iron Fumarate/FA ( Tablet) 1 Each Tablet, 1 EACH PO DAILY, (Reported) Entered as Reported by: STAR VARNER on 07/10/21 1347 Discontinued Medications Acetaminophen (Tylenol Extra Strength) 500 Mg Tablet, 1,000 MG PO TID Discontinued Reason: Referral/FU Appt-Addtl Prescribed by: CARMEN BROWER on 02/04/18 114 Ibuprofen (Ibu) 600 Mg Tablet, 600 MG PO Q6H Discontinued Reason: No Longer Taking Prescribed by: CARMEN BROWER on 02/04/181139 Review of Systems Review of Systems Constitutional: no symptoms reported EENTM: no symptoms reported Respiratory: see HPI Cardiovascular: see HPI Gastrointestinal: see HPI : Yes Expected Date of Delivery: Oct 28, 2021 Musculoskeletal: muscle cramps Skin: no symptoms reported Psychiatric/Neurological: No Symptoms Reported Hematologic/Lymphatic: No Symptoms Reported Immunological/Allergic: no symptoms reported Past Xcwzldr-Skwtyv-Donakj Hx Patient Social History Tobacco Use?: No Use of E-Cig and/or Vaping dev: No Substance use?: No Alcohol Use?: No Pt feels they are or have been: No Immunizations Up To Date Tetanus Booster (TDap): Unknown PED Vaccines UTD: Yes Seasonal Allergies Seasonal Allergies: No Past Medical History Surgeries: No Respiratory: No Cardiac: No Neurological: Yes Concussion : Yes Expected Date of Delivery: Oct 28, 2021 Reproductive Disorders: No Genitourinary: No Gastrointestinal: No Musculoskeletal: No Endocrine: No HEENT: No Cancer: No Psychosocial: No Integumentary: No Blood Disorders: No Adverse Reaction/Blood Tranf: No Family Medical History Patient reports no known family medical history. No Pertinent Family Hx Physical Exam Vital Signs Vital Signs - First Documented 07/10/21 14:09 Temp 36.6 Pulse 110 Resp 20 B/P (MAP) 140/89 (106) Pulse Ox 97 O2 Delivery Room Air Capillary Refill : Less Than 3 Seconds Height, Weight, BMI Height: 5'0.00" Weight: 163lbs. 6.0oz. [id number]; 24.00 BMI Method:Stated General Appearance: No Apparent Distress, WD/WN HEENT: PERRL/EOMI, Normal ENT Inspection Neck: Normal Inspection; No JVD Respiratory: Chest Non Tender, Lungs Clear, Normal Breath Sounds, No Accessory Muscle Use, No Respiratory Distress Cardiovascular: Regular Rate, Rhythm, No Edema, No Murmur Gastrointestinal: Normal Bowel Sounds, Non Tender, Soft, Distended (Appropriately gravid for gestational age) Extremity: Normal Inspection, Non Tender, No Calf Tenderness, No Pedal Edema Neurologic/Psychiatric: Alert, Oriented x3, No Motor/Sensory Deficits, Normal Mood/Affect, drywall metal stud worker II-XII Norm as Tested Skin: Normal Color, Warm/Dry Progress/Results/Core Measures Suspected Sepsis SIRS Temperature: Pulse: 110 Respiratory Rate: 20 Laboratory Tests 07/10/21 14:26: White Blood Count 5.3 Blood Pressure 140 /89 Mean: 106 Laboratory Tests 07/10/21 14:26: Creatinine 0.65, INR Comment 1.0, Platelet Count 210, Total Bilirubin 0.4 Results/Orders Lab Results Laboratory Tests Test 07/10/21 14:18 07/10/21 14:26 Range/Units Influenza Type A (RT-PCR) Not Detected Not Detecte Influenza Type B (RT-PCR) Not Detected Not Detecte SARS-CoV-2 RNA (RT-PCR) Not Detected Not Detecte White Blood Count 5.3 4.3-11.0 10^3/uL Red Blood Count 4.52 3.80-5.11 10^6/uL Hemoglobin 13.5 11.5-16.0 g/dL Hematocrit 39 35-52 % Mean Corpuscular Volume 87 80-99 fL Mean Corpuscular Hemoglobin 30 25-34 pg Mean Corpuscular Hemoglobin Concent 35 32-36 g/dL Red Cell Distribution Width 13.0 10.0-14.5 % Platelet Count 210 130-400 10^3/uL Mean Platelet Volume 9.8 9.0-12.2 fL Immature Granulocyte % (Auto) 0 % Neutrophils (%) (Auto) 71 42-75 % Lymphocytes (%) (Auto) 20 12-44 % Monocytes (%) (Auto) 8 0-12 % Eosinophils (%) (Auto) 0 0-10 % Basophils (%) (Auto) 0 0-10 % Neutrophils # (Auto) 3.8 1.8-7.8 10^3/uL Lymphocytes # (Auto) 1.0 1.0-4.0 10^3/uL Monocytes # (Auto) 0.4 0.0-1.0 10^3/uL Eosinophils # (Auto) 0.0 0.0-0.3 10^3/uL Basophils # (Auto) 0.0 0.0-0.1 10^3/uL Immature Granulocyte # (Auto) 0.0 0.0-0.1 10^3/uL Prothrombin Time 13.2 12.2-14.7 SEC INR Comment 1.0 0.8-1.4 Activated Partial Thromboplast Time 27 24-35 SEC Sodium Level 135 135-145 MMOL/L Potassium Level 3.9 3.6-5.0 MMOL/L Chloride Level 105 98-107 MMOL/L Carbon Dioxide Level 16 L 21-32 MMOL/L Anion Gap 14 5-14 MMOL/L Blood Urea Nitrogen 10 7-18 MG/DL Creatinine 0.65 0.60-1.30 MG/DL Estimat Glomerular Filtration Rate 125 BUN/Creatinine Ratio 15 Glucose Level 117 H 70-105 MG/DL Calcium Level 9.0 8.5-10.1 MG/DL Corrected Calcium 9.1 8.5-10.1 MG/DL Magnesium Level 2.2 1.6-2.4 MG/DL Total Bilirubin 0.4 0.1-1.0 MG/DL Aspartate Amino Transf (AST/SGOT) 20 5-34 U/L Alanine Aminotransferase (ALT/SGPT) 11 0-55 U/L Alkaline Phosphatase 64 40-136 U/L Myoglobin 20.7 10.0-92.0 NG/ML Troponin I < 0.028 <0.028 NG/ML Total Protein 7.1 6.4-8.2 GM/DL Albumin 3.9 3.2-4.5 GM/DL Lipase 14 8-78 U/L My Orders Orders - ANGIE ALBRECHT MD Covid 19 Inhouse Test (07/10/21 14:11) Influenza A And B By Pcr (07/10/21 14:11) Ekg Tracing (07/10/21 14:12) Monitor-Rhythm Ecg Trace Only (07/10/21 14:12) Cbc With Automated Diff (07/10/21 14:12) Magnesium (07/10/21 14:12) Comprehensive Metabolic Panel (07/10/21 14:12) Myoglobin Serum (07/10/21 14:12) Protime With Inr (07/10/21 14:12) Partial Thromboplastin Time (07/10/21 14:12) O2 (07/10/21 14:12) Ed Iv/Invasive Line Start (07/10/21 14:12) Troponin I Epifanio (07/10/21 14:12) Lactated Ringers (Lr 1000 Ml Iv Solution (07/10/21 14:45) Famotidine Injection (Pepcid Injection) (07/10/21 14:45) Lipase (07/10/21 14:32) Ondansetron Injection (Zofran Injectio (07/10/21 15:30) Lidocaine 2% Viscous 15 Ml (Xylocaine Vi (07/10/21 15:30) Antacid Suspension (Mylanta Suspension (07/10/21 15:30) Medications Given in ED Vital Signs/I&O 07/10/21 07/10/21 14:09 16:15 Temp 36.6 Pulse 110 90 Resp 20 18 B/P (MAP) 140/89 (106) 118/77 Pulse Ox 97 98 O2 Delivery Room Air Capillary Refill : Less Than 3 Seconds Blood Pressure Mean: 106 Progress Note #1: Time: 14:52 Progress Note Patient seen and examined. EKG and telemetry unremarkable. Labs pending. X-r ays being deferred. Flu and Covid swabs have been obtained. IV fluids and Pepcid are being administered. Progress Note #2: Progress Note Isabelle his pain decreased from 5/10 down to 2/10 after GI cocktail. We discussed the differential diagnoses which included infection, PE, etc. Since she would be at relatively low risk for PE ( being the only risk factor) we elected to forego any further work-up through shared decision making after discussing risks and benefits of work-up. We also elected to forego chest x-ray since she did not have fever or cough today and lung sounds were clear. She was discharged home in improved condition. ECG Initial ECG Impression Date: Jul 10, 2021 Initial ECG Impression Time: 14:21 Initial ECG Rate: 82 Initial ECG Rhythm: Normal Sinus Initial ECG Impression: Normal Comment Normal sinus rhythm with no ST elevation or depression. No abnormal intervals or axis deviation. Departure Impression Primary Impression: Nausea & vomiting Qualified Codes: R11.2 - Nausea with vomiting, unspecified Additional Impression: Atypical chest pain Disposition: 01 HOME, SELF-CARE Condition: Improved Departure-Patient Inst. Decision time for Depature: 16:06 Referrals: AMMON SMITH MD (PCP/Family) Primary Care Physician Patient Instructions: Nausea and Vomiting of Add. Discharge Instructions: Start with a noncarbonated clear liquid diet and gradually advance your diet with small quantities of bland food as tolerated. Start Pepcid (famotidine) twice daily and continue for at least 1 week. You may use Zofran (ondansetron) as prescribed for nausea and vomiting. Sleeping with your head elevated may help reduce acid reflux. Avoid eating large meals or close to bedtime. Avoid eating things that can irri kowalski the stomach such as citrus, tomato products, spicy foods, fatty or greasy foods, etc. Call with questions or concerns. Return to the ER if you have worsening symptoms despite following these instructions. All discharge instructions reviewed with patient and/or family. Voiced understanding. Scripts Ondansetron (Ondansetron Odt) 4 Mg Tab.rapdis 4 MG SL Q4H PRN for NAUSEA/VOMITING, #10 TAB Prov: ANGIE ALBRECHT MD 07/10/21 Famotidine (Pepcid) 20 Mg Tablet 20 MG PO BID, #30 TAB Prov: ANGIE ALBRECHT MD 07/10/21 ANGIE ALBRECHT MD Jul 10, 2021 14:53
[2021-07-10 14:56] LABS: MAGNESIUM 2.2 MG/DL (1.6-2.4)
[2021-07-10] MEDS ORDERED: ANTACID SUSP 30 ML UDC (MYLANTA) PO ONE (15:30)
[2021-07-10] MEDS ORDERED: ONDANSETRON 4 MG/2 ML (SDV) Z0FRAN IVP ONE (15:30)
[2021-07-10] MEDS ORDERED: LIDOCAINE 2% VISCOUS 15 ML UDC PO ONE (15:30)
[2021-07-10] MEDS ORDERED: ONDA4TAB11 SL (16:09)
[2021-07-10] MEDS ORDERED: FAMO-119 PO (16:09)
[2021-07-10 16:15] VITALS: BP 118/77
== END 2021-07-10 16:19 | disposition home or self-care (01) ==
LOC: EDUNIT# 14:04 → ER 14:05
DX: O21.0 Mild hyperemesis gravidarum (principal); O99.412 Diseases of the circulatory system complicating pregnancy, second trimester; R07.89 Other chest pain; Z3A.25 25 weeks gestation of pregnancy; Z20.822 Contact with and (suspected) exposure to COVID-19
CPT/HCPCS: 36415; 80053; 83690; 83735; 83874; 84484; 85025; 85610; 85730; 87636; 93005